=== PATIENT | male | born 1975 | race African-American/Black ===

== ENCOUNTER 2019-09-16 17:47 | Emergency (ER) | payer MEDICAID ==
[~2019-09-16] VITALS: Ht 180.3 cm; Wt 86.2 kg
--- NOTE | 2019-09-16 17:55 | NUR ---
ED Nurse Note: pt brought in by [employer] [id number] [place] due to SI. per [employer] pt walked in to police station and told them he wants to kill himself. the same question asked and pt stated "Yes. I want to overdose a bunch of stuff and kill myself." pt aao x3-4 but it is difficult to communicate due to the flgiht of thought. pt denied that he is homeless as providing an address. pt stated "I took a bunch of stuff last night. I don't even remember the names." no SOB or cough at this time. sitter at bedside. ERMD at bedside assessing the pt. pt is in gown and removed all the belongings and placed in locker #1.
--- NOTE | 2019-09-16 18:00 | NUR ---
ED Nurse Note: per [employer] pt is on 5150 for DTS.
--- NOTE | 2019-09-16 18:06 | Emergency Room Report ---
History of Present Illness General Chief Complaint: Behavioral Complaint Source: Patient Present Illness HPI 44-year-old male history of psychiatric illness, history of SI in the past presents with suicidal ideations and suicidal attempt around 7 PM 09/15/2019 patient reports taking 20 pills of 100 mg of Seroquel, and 20 pills of 20 mg of Geodon reports nausea, no vomiting, generalized abdominal aches, aggravated by overdose, alleviated by not taking those medications, severity is mild, constant patient denies any chest pain shortness of breath no dyspnea on exertion, patient still states he feels suicidal he states he is suicidal because there are people in his family. Allergies: Coded Allergies: No Known Allergies (Verified , 08/23/10) COVID-19 Screening Contact w/high risk pt: No Recent Travel to affected area: No Experienced COVID-19 symptoms?: No COVID-19 Testing performed [employer]: No Patient History Past Medical History: see triage record Social History: Reports: drug use - Amphetamines Reviewed Nursing Documentation: PMH: Agreed; PSxH: Agreed Nursing Documentation-PMH Past Medical History: No History, Except For Hx Hypertension: Yes Hx Diabetes: Yes Review of Systems All Other Systems: negative except mentioned in HPI Physical Exam Vital Signs Date Time Temp Pulse Resp B/P (MAP) Pulse Ox O2 Delivery O2 Flow Rate FiO2 09/16/19 17:49 98.4 84 18 146/92 (110) 98 Room Air Sp02 EP Interpretation: reviewed, normal General Appearance: well appearing, no apparent distress, alert Head: normocephalic, atraumatic Eyes: bilateral eye PERRL, bilateral eye EOMI ENT: uvula midline, moist mucus membranes Neck: supple, thyroid normal, supple/symm/no masses Respiratory: lungs clear, no respiratory distress, no retraction, no accessory muscle use Cardiovascular #1: normal peripheral pulses, regular rate, rhythm, no edema, no gallop, no murmur Gastrointestinal: non tender, soft, no guarding, no rebound Musculoskeletal: normal inspection Neurologic: alert, oriented x3 Psychiatric: other - Suicidal ideations Skin: no rash, warm/dry Medical Decision Making Diagnostic Impression: Primary Impression: Suicidal ideations ER Course 44-year-old male presents with suicidal ideations currently on a 5150 for suicidal ideations and attempt, patient had a overdosed yesterday, currently asymptomatic except for some nausea, low suspicion for any acute processes patient is currently comfortable. Given his ingestion 24 hours ago and currently patient is asymptomatic except for some nausea, low suspicion for an acute process no evidence of somnolence, no evidence of [employer] depression. Will obtain labs, and medically clear patient for discharge to psychiatric facility, poison control was also called to gather their input they agree with plan. We will continue to observe patient, pending labs and transfer patient to a psychiatric facility QTc within normal limits, low suspicion for actual drug overdose. David 6:08pm poison control called, recommended continued observation low suspicion for any acute processes at this time given his ingestion was 24 hours ago. Patient is medically cleared for transfer to psychiatric facility under 5150 Laboratory Tests Test 09/16/19 18:46 White Blood Count 5.1 K/UL (4.8-10.8) Red Blood Count 5.29 M/UL (4.70-6.10) Hemoglobin 13.9 G/DL (14.2-18.0) L Hematocrit 45.4 % (42.0-52.0) Mean Corpuscular Volume 86 FL (80-99) Mean Corpuscular Hemoglobin 26.2 PG (27.0-31.0) L Mean Corpuscular Hemoglobin Concent 30.5 G/DL (32.0-36.0) L Red Cell Distribution Width 18.2 % (11.6-14.8) H Platelet Count 276 K/UL (150-450) Mean Platelet Volume 5.7 FL (6.5-10.1) L Neutrophils (%) (Auto) 34.5 % (45.0-75.0) L Lymphocytes (%) (Auto) 54.4 % (20.0-45.0) H Monocytes (%) (Auto) 8.0 % (1.0-10.0) Eosinophils (%) (Auto) 1.2 % (0.0-3.0) Basophils (%) (Auto) 1.9 % (0.0-2.0) Sodium Level 139 MMOL/L (136-145) Potassium Level 3.7 MMOL/L (3.5-5.1) Chloride Level 102 MMOL/L (98-107) Carbon Dioxide Level 30 MMOL/L (21-32) Anion Gap 7 mmol/L (5-15) Blood Urea Nitrogen 16 mg/dL (7-18) Creatinine 0.9 MG/DL (0.55-1.30) Estimated Glomerular Filtration Rate > 60 mL/min (>60) Glucose Level 74 MG/DL (74-106) Calcium Level 9.0 MG/DL (8.5-10.1) Total Bilirubin 0.5 MG/DL (0.2-1.0) Aspartate Amino Transferase (AST) 24 U/L (15-37) Alanine Aminotransferase (ALT) 34 U/L (12-78) Alkaline Phosphatase 111 U/L (46-116) Total Protein 7.0 G/DL (6.4-8.2) Albumin 3.6 G/DL (3.4-5.0) Globulin 3.4 g/dL Albumin/Globulin Ratio 1.1 (1.0-2.7) Salicylates Level 1.0 ug/mL (2.8-20) L Urine Opiates Screen Negative (NEGATIVE) Acetaminophen Level < 2 MCG/ML (10-30) L Urine Barbiturates Screen Negative (NEGATIVE) Phencyclidine (PCP) Screen Negative (NEGATIVE) Urine Amphetamines Screen Positive (NEGATIVE) H Urine Benzodiazepines Screen Negative (NEGATIVE) Urine Cocaine Screen Negative (NEGATIVE) Urine Marijuana (THC) Screen Positive (NEGATIVE) H Serum Alcohol < 3 mg/dL EKG Diagnostic Results EKG Time: 18:18 EP Interpretation: NSR, rate 70, QTc 434, no acute ST elevations, normal axis Last Vital Signs Date Time Temp Pulse Resp B/P (MAP) Pulse Ox O2 Delivery O2 Flow Rate FiO2 09/16/19 17:49 98.4 84 18 146/92 (110) 98 Room Air Disposition: PSYCH HOSP/UNIT Condition: Stable Isidoro Larkin MD September 16, 2019 18:06
--- NOTE | 2019-09-16 18:14 | NUR ---
ED Nurse Note: poison control contacted and spoke with TOMY. pt is having BM in bedside commode in the room. will carry order after he finished.
--- NOTE | 2019-09-16 18:22 | NUR ---
ED Nurse Note: EKG at bedside.
--- NOTE | 2019-09-16 18:48 | NUR ---
ED Nurse Note: blood and urine sent to lab.
[2019-09-16 18:53] LABS: BASOPHILS % (AUTO) 1.9 % (0.0-2.0); EOSINOPHILS % (AUTO) 1.2 % (0.0-3.0); HEMATOCRIT 45.4 % (42.0-52.0); HEMOGLOBIN 13.9 G/DL (14.2-18.0); LYMPHOCYTES % (AUTO) 54.4 % (20.0-45.0); MEAN CORPUSCULAR VOLUME 86 FL (80-99); NEUTROPHILS % (AUTO) 34.5 % (45.0-75.0); PLATELET COUNT 276 K/UL (150-450); RED BLOOD COUNT 5.29 M/UL (4.70-6.10); RED CELL DISTRIBUTION WIDTH 18.2 % (11.6-14.8); WHITE BLOOD COUNT 5.1 K/UL (4.8-10.8)
[2019-09-16 18:58] VITALS: BP 146/92
[2019-09-16 19:02] LABS: ANION GAP 7 mmol/L (5-15); BLOOD UREA NITROGEN 16 mg/dL (7-18); CARBON DIOXIDE 30 MMOL/L (21-32); CHLORIDE 102 MMOL/L (98-107); CREATININE 0.9 MG/DL (0.55-1.30); POTASSIUM 3.7 MMOL/L (3.5-5.1); SODIUM 139 MMOL/L (136-145)
[2019-09-16 19:06] LABS: ALANINE AMINOTRANSFERASE 34 U/L (12-78); ALBUMIN 3.6 G/DL (3.4-5.0); ALBUMIN/GLOBULIN RATIO 1.1 (1.0-2.7); ALKALINE PHOSPHATASE 111 U/L (46-116); ASPARTATE AMINO TRANSFERASE 24 U/L (15-37); BILIRUBIN,TOTAL 0.5 MG/DL (0.2-1.0)
--- NOTE | 2019-09-16 19:19 | NUR ---
HAND-OFF: Report given to DEMETRA Dale. no orders to carry at this time.
[2019-09-16 21:00] VITALS: BP 132/90
--- NOTE | 2019-09-16 21:00 | NUR ---
ED Nurse Note: Pt resting in bed with eyes closed, non-labored breathing, no signs of distress, will continue to monitor.
[2019-09-16 22:55] LABS: APPEARANCE,URINE SLIGHTLY CLOUDY; BILIRUBIN, URINE NEGATIVE (NEGATIVE); GLUCOSE, URINE (UA) NEGATIVE (NEGATIVE); KETONES,URINE NEGATIVE (NEGATIVE); LEUKOCYTE ESTERASE ,URINE NEGATIVE (NEGATIVE); NITRITE,URINE NEGATIVE (NEGATIVE); PH,URINE 6 (4.5-8.0); PROTEIN,URINE 3+ (NEGATIVE); UROBILINOGEN,URINE 4 MG/DL (0.0-1.0)
[2019-09-16 22:56] LABS: COLOR,URINE YELLOW
--- NOTE | 2019-09-16 23:00 | NUR ---
ED Nurse Note: Pt requesting food and water, provided, urine sent to lab. Spoke with accepting facilty regarding status, will continue to monitor
[2019-09-17 00:59] VITALS: BP 126/77
--- NOTE | 2019-09-17 01:00 | NUR ---
ER DISCHARGE NOTE: Patient is cleared to be discharged per ERMD, pt is aox4, on room air, with stable vital signs. pt was given dc instructions, pt was able to verbalize understanding, pt id band and iv site removed without complications. pt is stable to be transferred to [place], report given to DEMETRA Padron. pt took all belongings.
== END 2019-09-17 01:00 ==
LOC: EDUNIT# 17:47 → EDBD 17:47 → EMR 18:08
DX: R45.851 Suicidal ideations (principal); R11.0 Nausea; Z91.5 Personal history of self-harm; E11.9 Type 2 diabetes mellitus without complications; I10 Essential (primary) hypertension
CPT/HCPCS: 36415; 80053; 80307; 81001; 85025; 87086; 93005; 96360; G0480; G0481; J7030; Z7502; 99285